=== PATIENT | male | born 1995 | race Caucasian/White ===

== ENCOUNTER → 2019-11-12 | Outpatient (CLI) | payer OTHER ==
[~2019-11-12] MED LIST: METHACHOLINE KIT (J7674) INH ONE
--- NOTE | 2019-11-12 13:19 | PFTRPT ---
Site: [facility], [address] [place] [address], [address] ID: [id number] Name: HERB DE SOUZA Visit Date: 11/12/2019 Second ID: [id number] Referring Doctor: Dino White MD Reviewing Doctor: Dino White MD Anthropometrist: Charisma WIGGINS, ELDA Age: 24 : 1995 Sex: Male Race: Height: 75.00 Inches Weight: 231.00 Lbs BSA: 2.33 Order IDs: [id number] Requested Test(s): <RESP-PFT.PFT> Diagnosis: R06.02 test meet the ATS standards for acceptability and repeatability. Review Status: Not Reviewed Pre-Bronch Post-Bronch Pred Actual %Pred Actual %Chng SPIROMETRY FVC (L) 6.43 6.58 102 FEV1 (L) 5.25 5.57 106 FEV1/FVC (%) 83 85 101 FEF 25% (L/sec) 9.34 9.00 96 FEF 50% (L/sec) 5.98 7.24 121 FEF 75% (L/sec) 2.46 3.17 128 FEF 25-75% (L/sec) 5.25 6.11 116 FEF Max (L/sec) 11.35 9.56 84 FIVC (L) 6.57 FIF 50% (L/sec) 5.65 8.72 154 FIF Max (L/sec) 8.86 MVV (L/min) 202 162 80 Expiratory Time (sec) 6.70 Back Extrap Vol (L) 0.21 Time To FEFmax (sec) 0.177 LUNG VOLUMES SVC (L) 6.11 6.39 104 IC (L) 3.97 4.59 115 ERV (L) 2.14 1.80 84 TGV (L) 3.92 4.30 109 RV (Pleth) (L) 1.78 2.50 140 TLC (Pleth) (L) 7.89 8.89 112 RV/TLC (Pleth) (%) 22 28 127 DIFFUSION DLCOunc (ml/min/mmHg) 38.73 42.57 109 DLCOcor (ml/min/mmHg) 38.73 43.33 111 DL/VA (ml/min/mmHg/L) 4.91 5.28 107 VA (L) 7.89 8.21 104 BHT (sec) 9.87 IVC (L) 6.31 TLC (SB) (L) 8.36 AIRWAYS RESISTANCE Raw (cmH2O/L/s) 1.45 0.72 49 Gaw (L/s/cmH2O) 1.03 1.39 135 sRaw (cmH2O*s) 4.76 2.95 61 sGaw (1/cmH2O*s) 0.20 0.34 169 BLOOD GASES Hgb (gm/dL) 14.0
--- NOTE | 2019-11-12 13:55 | PFTRPT ---
Site: [facility], [address] [place], [address] ID: [id number] Name: HERB DE SOUZA Visit Date: 11/12/2019 Second ID: [id number] Referring Doctor: Dino White MD Reviewing Doctor: Dino White MD Nursing Home Administrator: Charisma WIGGINS, ELDA Age: 24 : 1995 Sex: Male Race: Height: 75.00 Inches Weight: 231.00 Lbs BSA: 2.33 Order IDs: [id number] Requested Test(s): <RESP-PFT.METH CHAL> Diagnosis: R06.02 of albuterol for postbronchodilator. Review Status: Not Reviewed Pre-Bronch Post-Bronch Pred Actual %Pred Actual %Chng SPIROMETRY FVC (L) 6.43 6.65 103 6.48 -2 FEV1 (L) 5.25 5.56 105 5.35 -3 FEV1/FVC (%) 83 84 100 82 -1 FEF 25% (L/sec) 9.34 8.86 94 8.38 -5 FEF 50% (L/sec) 5.98 6.98 116 6.50 -6 FEF 75% (L/sec) 2.46 3.04 123 2.45 -19 FEF 25-75% (L/sec) 5.25 5.90 112 5.24 -11 FEF Max (L/sec) 11.35 9.20 81 8.61 -6 FIVC (L) 6.72 6.43 -4 FIF 50% (L/sec) 5.65 5.75 101 6.63 15 FIF Max (L/sec) 6.11 6.88 12 Expiratory Time (sec) 6.65 6.47 -2 Back Extrap Vol (L) 0.19 0.18 -5 Time To FEFmax (sec) 0.129 0.134 3
== END ==
LOC: M CARPUL 12:34
PROVIDERS: ATTEND Internal Medicine Pulmonary Disease
DX: R06.02 Shortness of breath (principal)
CPT/HCPCS: 88738; 94010; 94070; 94726; 94729; J7674